=== PATIENT | female | born 1960 | race Native Hawaiian/Other Pacific Islander ===

== ENCOUNTER 2017-01-01 19:51 | Inpatient (IN) | payer BC ==
[~2017-01-01] VITALS: Ht 157.5 cm; Wt 81.2 kg
[2017-01-01] MEDS ORDERED: ATOR20TA PO (20:22)
[2017-01-01] MEDS ORDERED: LOSA25TA13 PO (20:22)
[2017-01-01] MEDS ORDERED: ALLO100T PO (20:22)
[2017-01-01] MEDS ORDERED: SODI650T PO (20:22)
[2017-01-01] MEDS ORDERED: CALC0.253 PO (20:22)
[2017-01-01] MEDS ORDERED: FERR-58 PO (20:22)
[2017-01-01] MEDS ORDERED: ALPR0.5T8 PO (20:22)
[2017-01-01] MEDS ORDERED: METO-304 PO (20:22)
[2017-01-01] MEDS ORDERED: ASPI81TA31 PO (20:22)
[2017-01-01] MEDS ORDERED: HYDR100T27 PO (20:22)
[2017-01-01 20:35] LABS: BASOPHILS # (AUTO) 0.1 K/uL (0.0-0.2); BASOPHILS % (AUTO) 0.5 % (0.0-2.0); EOSINOPHILS # (AUTO) 0.3 K/uL (0.0-0.7); EOSINOPHILS % (AUTO) 2.8 % (0.0-7.0); HEMATOCRIT 26.9 % (37.0-47.0); HEMOGLOBIN 8.7 g/dL (12.0-16.0); LYMPHOCYTES # (AUTO) 2.2 K/uL (0.8-4.8); LYMPHOCYTES % (AUTO) 19.2 % (20.5-51.5); MEAN CORPUSCULAR HEMOGLOBIN 28.3 uug (27.0-31.0); MEAN CORPUSCULAR HGB CONC 32 g/dL (32.0-37.0); MEAN CORPUSCULAR VOLUME 87.9 fL (81.0-99.0); MONOCYTES # (AUTO) 1.3 K/uL (0.1-1.30); MONOCYTES % (AUTO) 10.8 % (0.0-11.0); NEUTROPHILS # (AUTO) 7.7 K/uL (1.8-8.9); NEUTROPHILS % (AUTO) 66.7 % (38.5-71.5); PLATELET COUNT (AUTO) 324 K/uL (150-450); RED BLOOD CELL COUNT(AUTO) 3.07 MIL/uL (4.20-5.40); RED CELL DISTRIBUTION WIDTH 15.9 % (11.5-14.5); WHITE BLOOD COUNT (AUTO) 11.6 K/uL (4.0-11.2)
[2017-01-01 20:39] LABS: POTASSIUM 4.8 mmol/L (3.5-5.1)
[2017-01-01 20:41] LABS: CREATININE 9.4 mg/dL (0.6-1.3)
[2017-01-01 20:51] LABS: ALBUMIN 2.8 g/dL (3.4-5.0); BILIRUBIN,DIRECT 0.1 mg/dL (0.0-0.2); BILIRUBIN,TOTAL 0.2 mg/dL (0.2-1.0); TOTAL PROTEIN, SERUM 6.9 g/dL (6.4-8.2)
[2017-01-01 20:52] LABS: MAGNESIUM 1.6 mg/dL (1.8-2.4); PHOSPHOROUS 6.5 mg/dL (2.5-4.9)
[2017-01-01 20:57] LABS: ANISOCYTOSIS 1+
[2017-01-01 21:25] LABS: ABG BASE EXCESS -13.6 mmol/L; ABG HCO3 14.2 mmol/L; ABG PH 7.157 (7.350-7.450); ABG SITE LEFT RADIAL; ABG TOTAL HEMOGLOBIN 8.5 G/dL (12.0-16.0); COHb 1.2 % (0.5-1.5); O2Hb 50.8 % (94.0-97.0); VENT MODE Nasal Cannula
[2017-01-01 21:57] VITALS: BP 140/67
[2017-01-01] MEDS ORDERED: DEXTROSE 50% 50 ML DISP.SYRIN IV PRN (22:15)
[2017-01-01] MEDS: BLOOD SUGAR DIAGNOSTIC 1 EACH STRIP VI SCH (22:15)
[2017-01-02] VITALS (11 sets, daily range): BP systolic 125–165; BP diastolic 63–85
[2017-01-02 06:55] LABS: BASOPHILS # (AUTO) 0.1 K/uL (0.0-0.2); BASOPHILS % (AUTO) 0.5 % (0.0-2.0); EOSINOPHILS # (AUTO) 0.3 K/uL (0.0-0.7); EOSINOPHILS % (AUTO) 2.9 % (0.0-7.0); HEMATOCRIT 23.7 % (37.0-47.0); HEMOGLOBIN 7.6 g/dL (12.0-16.0); LYMPHOCYTES # (AUTO) 2.4 K/uL (0.8-4.8); LYMPHOCYTES % (AUTO) 23.7 % (20.5-51.5); MEAN CORPUSCULAR HEMOGLOBIN 28.2 uug (27.0-31.0); MEAN CORPUSCULAR HGB CONC 32 g/dL (32.0-37.0); MONOCYTES # (AUTO) 0.8 K/uL (0.1-1.30); MONOCYTES % (AUTO) 7.7 % (0.0-11.0); NEUTROPHILS # (AUTO) 6.4 K/uL (1.8-8.9); NEUTROPHILS % (AUTO) 65.2 % (38.5-71.5); PLATELET COUNT (AUTO) 275 K/uL (150-450); RED CELL DISTRIBUTION WIDTH 15.8 % (11.5-14.5)
[2017-01-02 06:57] LABS: CALCIUM 7.6 mg/dL (8.5-10.1); MAGNESIUM 1.6 mg/dL (1.8-2.4); PHOSPHOROUS 6.8 mg/dL (2.5-4.9); POTASSIUM 5.6 mmol/L (3.5-5.1)
[2017-01-02 07:00] LABS: CREATININE 9.4 mg/dL (0.6-1.3)
[2017-01-02] MEDS: BLOOD SUGAR DIAGNOSTIC 1 EACH STRIP VI SCH ×4 (07:24→20:42)
[2017-01-02] MEDS ORDERED: METOLAZONE 5 MG TABLET PO ONE (07:45)
[2017-01-02] MEDS ORDERED: EPOETIN ALFA 20,000 UNIT/ML ML SQ ONE (08:15)
[2017-01-02] MEDS ORDERED: MAGNESIUM SULFATE/D5W 100 ML IV SCH (08:15)
[2017-01-02] MEDS: SEVELAMER CARBONATE 800 MG TABLET PO SCH ×3 (08:21→18:18)
[2017-01-02] MEDS: SODIUM BICARBONATE 8.4% 50 MEQ in IV 1/2NS 1000 ML 1,000 ML IV PRN ×2 (09:54→10:22)
[2017-01-02] MEDS: FERROUS SULFATE 325 MG TABEC PO SCH ×3 (09:56→16:23)
[2017-01-02] MEDS: ALLOPURINOL 100 MG TABLET PO SCH (09:56)
[2017-01-02] MEDS: ASPIRIN 81 MG TAB.CHEW PO SCH (09:56)
[2017-01-02] MEDS: hydrALAZINE HCL 50 MG TABLET PO SCH ×3 (09:57→22:47)
[2017-01-02] MEDS: SODIUM BICARBONATE 650 MG TABLET PO SCH ×3 (09:58→16:23)
[2017-01-02] MEDS: ALPRAZOLAM 0.5 MG TABLET PO PRN ×2 (14:29→22:54)
[2017-01-02] MEDS: METOPROLOL SUCCINATE XL 50 MG TAB.SR.24H PO SCH (20:44)
[2017-01-02] MEDS: CALCITRIOL 0.25 MCG CAPSULE PO SCH (20:44)
[2017-01-02] MEDS: ATORVASTATIN 20 MG TABLET PO SCH (20:44)
[2017-01-02] MEDS: INSULIN REGULAR, HUMAN 300 UNIT/3 ML VIAL SQ PRN (20:53)
[2017-01-03] VITALS: BP 149/71
[2017-01-03 04:00] VITALS: BP 143/73
[2017-01-03] MEDS: PANTOPRAZOLE SODIUM 40 MG TABLET.DR PO SCH (06:08)
[2017-01-03] MEDS: hydrALAZINE HCL 50 MG TABLET PO SCH ×3 (06:08→22:24)
[2017-01-03] MEDS: BLOOD SUGAR DIAGNOSTIC 1 EACH STRIP VI SCH ×4 (06:08→21:42)
[2017-01-03 06:50] LABS: ALBUMIN 2.7 g/dL (3.4-5.0); BILIRUBIN,TOTAL 0.3 mg/dL (0.2-1.0); CALCIUM 8.1 mg/dL (8.5-10.1); MAGNESIUM 1.8 mg/dL (1.8-2.4); PHOSPHOROUS 6.1 mg/dL (2.5-4.9); TOTAL PROTEIN, SERUM 6.7 g/dL (6.4-8.2)
[2017-01-03 06:51] LABS: CREATININE 8.8 mg/dL (0.6-1.3)
[2017-01-03 07:39] LABS: WHITE BLOOD COUNT (AUTO) 10.9 K/UL (4.3-11.0)
[2017-01-03 07:40] LABS: HEMATOCRIT 29.1 % (33-45); HEMOGLOBIN 9.7 G/DL (11.5-14.8); LYMPHOCYTES % (AUTO) 15.1 % (20.5-51.5); MEAN CORPUSCULAR HEMOGLOBIN 29.7 UUG (26.0-33.0); MEAN CORPUSCULAR HGB CONC 33 g/dL (31.0-36.0); MEAN CORPUSCULAR VOLUME 89.4 FL (82-100); MONOCYTES % (AUTO) 7.9 % (0.0-11.0); PLATELET COUNT (AUTO) 278 K/UL (150-450); RED BLOOD CELL COUNT(AUTO) 3.25 MIL/UL (4.0-5.2); RED CELL DISTRIBUTION WIDTH 15.9 % (11.5-15.0)
[2017-01-03 07:41] LABS: BASOPHILS # (AUTO) 0.1 K/UL (0.0-0.2); BASOPHILS % (AUTO) 0.7 % (0.0-2.0); EOSINOPHILS # (AUTO) 0.2 K/UL (0.0-0.7); EOSINOPHILS % (AUTO) 2.3 % (0.0-7.0); LYMPHOCYTES # (AUTO) 1.6 K/UL (0.8-4.8); MONOCYTES # (AUTO) 0.9 K/UL (0.1-1.30)
[2017-01-03] MEDS: SEVELAMER CARBONATE 800 MG TABLET PO SCH ×3 (09:03→17:39)
[2017-01-03] MEDS: ASPIRIN 81 MG TAB.CHEW PO SCH (09:03)
[2017-01-03] MEDS: ALLOPURINOL 100 MG TABLET PO SCH (09:04)
[2017-01-03] MEDS: FERROUS SULFATE 325 MG TABEC PO SCH ×3 (09:04→17:39)
[2017-01-03] MEDS: SODIUM BICARBONATE 650 MG TABLET PO SCH ×3 (10:43→17:39)
[2017-01-03 11:58] VITALS: BP 150/76
[2017-01-03] MEDS: ALPRAZOLAM 0.5 MG TABLET PO PRN (12:23)
[2017-01-03] MEDS ORDERED: MORPHINE SULFATE 2 MG/1 ML DISP.SYRIN IV PRN (13:30)
[2017-01-03] MEDS: SODIUM BICARBONATE 8.4% 50 MEQ in IV 1/2NS 1000 ML 1,000 ML IV PRN (13:39)
[2017-01-03] MEDS: HYDROCODONE/APAP 5-325MG TABLET PO PRN (14:24)
[2017-01-03 16:43] VITALS: BP 144/70
[2017-01-03] MEDS: INSULIN REGULAR, HUMAN 300 UNIT/3 ML VIAL SQ PRN (17:46)
[2017-01-03] MEDS ORDERED: ONDANSETRON 4 MG/2 ML VIAL ONE (21:44)
[2017-01-03] MEDS: ONDANSETRON 4 MG/2 ML VIAL IV PRN (21:49)
[2017-01-03] MEDS: METOPROLOL SUCCINATE XL 50 MG TAB.SR.24H PO SCH (21:52)
[2017-01-03] MEDS: CALCITRIOL 0.25 MCG CAPSULE PO SCH (22:17)
[2017-01-03] MEDS: ATORVASTATIN 20 MG TABLET PO SCH (22:18)
[2017-01-04] MEDS: ACETAMINOPHEN 325 MG TABLET PO PRN ×3 (02:33→22:02)
[2017-01-04] MEDS: PANTOPRAZOLE SODIUM 40 MG TABLET.DR PO SCH (06:01)
[2017-01-04 06:03] LABS: ALBUMIN 2.3 g/dL (3.4-5.0); BILIRUBIN,TOTAL 0.2 mg/dL (0.2-1.0); CALCIUM 7.7 mg/dL (8.5-10.1); MAGNESIUM 1.6 mg/dL (1.8-2.4); PHOSPHOROUS 5.1 mg/dL (2.5-4.9); POTASSIUM 4.7 mmol/L (3.5-5.1); TOTAL PROTEIN, SERUM 6.1 g/dL (6.4-8.2)
[2017-01-04 06:04] LABS: CREATININE 5.8 mg/dL (0.6-1.3)
[2017-01-04] MEDS: hydrALAZINE HCL 50 MG TABLET PO SCH ×3 (06:04→21:21)
[2017-01-04] MEDS: BLOOD SUGAR DIAGNOSTIC 1 EACH STRIP VI SCH ×4 (06:10→21:26)
[2017-01-04] MEDS: INSULIN REGULAR, HUMAN 300 UNIT/3 ML VIAL SQ PRN ×4 (06:11→21:27)
[2017-01-04 07:10] LABS: WHITE BLOOD COUNT (AUTO) 13.1 K/uL (4.0-11.2)
[2017-01-04 07:11] LABS: HEMATOCRIT 28.3 % (37.0-47.0); HEMOGLOBIN 9.2 g/dL (12.0-16.0); MEAN CORPUSCULAR HEMOGLOBIN 28.9 uug (27.0-31.0); MEAN CORPUSCULAR HGB CONC 33 g/dL (32.0-37.0); MEAN CORPUSCULAR VOLUME 88.6 fL (81.0-99.0); PLATELET COUNT (AUTO) 271 K/uL (150-450)
[2017-01-04 07:12] LABS: BASOPHILS % (AUTO) 0.4 % (0.0-2.0); EOSINOPHILS # (AUTO) 0.1 K/uL (0.0-0.7); EOSINOPHILS % (AUTO) 0.8 % (0.0-7.0); LYMPHOCYTES # (AUTO) 1.6 K/uL (0.8-4.8); LYMPHOCYTES % (AUTO) 11.9 % (20.5-51.5); NEUTROPHILS # (AUTO) 10.3 K/uL (1.8-8.9); NEUTROPHILS % (AUTO) 78.9 % (38.5-71.5)
[2017-01-04] MEDS: ASPIRIN 81 MG TAB.CHEW PO SCH (08:16)
[2017-01-04] MEDS: SEVELAMER CARBONATE 800 MG TABLET PO SCH ×3 (08:16→17:23)
[2017-01-04] MEDS: FERROUS SULFATE 325 MG TABEC PO SCH ×3 (08:16→17:23)
[2017-01-04] MEDS: ALLOPURINOL 100 MG TABLET PO SCH (08:16)
[2017-01-04] MEDS: SODIUM BICARBONATE 650 MG TABLET PO SCH ×3 (08:16→17:23)
[2017-01-04] MEDS: SODIUM BICARBONATE 8.4% 50 MEQ in IV 1/2NS 1000 ML 1,000 ML IV PRN (10:27)
[2017-01-04 12:00] VITALS: BP 158/82
[2017-01-04 16:00] VITALS: BP 140/79
[2017-01-04] MEDS ORDERED: MAGNESIUM SULFATE/D5W 100 ML IV SCH (18:30)
[2017-01-04] MEDS: ONDANSETRON 4 MG/2 ML VIAL IV PRN (19:48)
[2017-01-04 20:00] VITALS: BP 182/89
[2017-01-04] MEDS: METOPROLOL SUCCINATE XL 50 MG TAB.SR.24H PO SCH (21:20)
[2017-01-04] MEDS: CALCITRIOL 0.25 MCG CAPSULE PO SCH (21:20)
[2017-01-04] MEDS: ATORVASTATIN 20 MG TABLET PO SCH (21:20)
[2017-01-05] VITALS: BP 117/59
[2017-01-05] MEDS: SODIUM BICARBONATE 8.4% 50 MEQ in IV 1/2NS 1000 ML 1,000 ML IV PRN ×2 (02:34→22:02)
[2017-01-05 04:00] VITALS: BP 145/72
[2017-01-05] MEDS: hydrALAZINE HCL 50 MG TABLET PO SCH ×4 (05:12→22:58)
[2017-01-05] MEDS: PANTOPRAZOLE SODIUM 40 MG TABLET.DR PO SCH (06:19)
[2017-01-05] MEDS: ALPRAZOLAM 0.5 MG TABLET PO PRN ×2 (06:23→12:35)
[2017-01-05 07:09] LABS: BASOPHILS # (AUTO) 0.1 K/uL (0.0-0.2); BASOPHILS % (AUTO) 0.4 % (0.0-2.0); EOSINOPHILS # (AUTO) 0.2 K/uL (0.0-0.7); EOSINOPHILS % (AUTO) 1.1 % (0.0-7.0); HEMATOCRIT 29.9 % (37.0-47.0); HEMOGLOBIN 9.6 g/dL (12.0-16.0); LYMPHOCYTES # (AUTO) 1.8 K/uL (0.8-4.8); LYMPHOCYTES % (AUTO) 11.1 % (20.5-51.5); MEAN CORPUSCULAR HEMOGLOBIN 28.8 uug (27.0-31.0); MEAN CORPUSCULAR HGB CONC 32 g/dL (32.0-37.0); MEAN CORPUSCULAR VOLUME 89.4 fL (81.0-99.0); MONOCYTES # (AUTO) 1.1 K/uL (0.1-1.30); MONOCYTES % (AUTO) 6.8 % (0.0-11.0); NEUTROPHILS % (AUTO) 80.6 % (38.5-71.5); PLATELET COUNT (AUTO) 276 K/uL (150-450); RED BLOOD CELL COUNT(AUTO) 3.34 MIL/uL (4.20-5.40); RED CELL DISTRIBUTION WIDTH 15.3 % (11.5-14.5); WHITE BLOOD COUNT (AUTO) 16.2 K/uL (4.0-11.2)
[2017-01-05 07:12] LABS: CALCIUM 7.7 mg/dL (8.5-10.1); POTASSIUM 4.3 mmol/L (3.5-5.1)
[2017-01-05 07:17] LABS: CREATININE 4.5 mg/dL (0.6-1.3)
[2017-01-05] MEDS: BLOOD SUGAR DIAGNOSTIC 1 EACH STRIP VI SCH ×4 (07:32→21:03)
[2017-01-05] MEDS: SEVELAMER CARBONATE 800 MG TABLET PO SCH ×3 (08:35→16:47)
[2017-01-05] MEDS: ALLOPURINOL 100 MG TABLET PO SCH (08:35)
[2017-01-05] MEDS: FERROUS SULFATE 325 MG TABEC PO SCH ×3 (08:35→16:47)
[2017-01-05] MEDS: ASPIRIN 81 MG TAB.CHEW PO SCH (08:36)
[2017-01-05] MEDS: SODIUM BICARBONATE 650 MG TABLET PO SCH (08:36)
[2017-01-05] MEDS: INSULIN REGULAR, HUMAN 300 UNIT/3 ML VIAL SQ PRN ×2 (08:38→22:09)
[2017-01-05] MEDS ORDERED: LEVOFLOXACIN 500 MG/D5W 500 MG in PREMIXED 1 EACH IV SCH (10:30)
[2017-01-05] MEDS ORDERED: VANCOMYCIN IV 500 MG in IV DEXTROSE 5% 100 ML IV SCH (10:30)
[2017-01-05] MEDS ORDERED: LEVOFLOXACIN 500 MG/D5W 500 MG in PREMIXED 1 EACH IV ONE (11:00)
[2017-01-05] MEDS ORDERED: IV NORMAL SALINE 250 ML IV ONE (11:04)
[2017-01-05] MEDS ORDERED: IOHEXOL 350 100 ML INFUS..BTL ONE (11:04)
[2017-01-05 11:55] VITALS: BP 148/77
[2017-01-05] MEDS ORDERED: VANCOMYCIN IV 500 MG in IV DEXTROSE 5% 100 ML IV PRN (12:30)
[2017-01-05 16:00] VITALS: BP 141/73
[2017-01-05] MEDS ORDERED: PIPERACILLIN/TAZO 0.75 G in IV DEXTROSE 5% 50 ML IV PRN (16:45)
[2017-01-05] MEDS: PIPERACILLIN/TAZOBACTAM/D5W 2.25 G in PREMIXED 1 EACH IV SCH ×2 (16:47→22:02)
[2017-01-05] MEDS: ACETAMINOPHEN 325 MG TABLET PO PRN (16:55)
[2017-01-05 20:00] VITALS: BP 139/81
[2017-01-05] MEDS: ATORVASTATIN 20 MG TABLET PO SCH (20:14)
[2017-01-05] MEDS: CALCITRIOL 0.25 MCG CAPSULE PO SCH (20:14)
[2017-01-05] MEDS: METOPROLOL SUCCINATE XL 50 MG TAB.SR.24H PO SCH (20:15)
[2017-01-05] MEDS: SIMETHICONE 80 MG TAB.CHEW PO PRN (21:02)
[2017-01-05] MEDS: SENNOSIDES 1 TABLET PO SCH (22:57)
[2017-01-05] MEDS ORDERED: SENNOSIDES 1 TABLET ONE (23:02)
[2017-01-06 02:10] LABS: HCV AB <0.1 s/co ratio (0.0-0.9); HEPATITIS A AB, IgM Negative (Negative); HEPATITIS A AB, TOTAL Positive (Negative); HEPATITIS B CORE AB, IgM Negative (Negative); HEPATITIS B CORE AB, TOTAL Negative (Negative); HEPATITIS B SURFACE AB Non Reactive (.); HEPATITIS B SURFACE AG Negative (Negative); HEPATITIS Be ANTIGEN Negative (Negative)
[2017-01-06 04:30] VITALS: BP 130/67
[2017-01-06] MEDS: hydrALAZINE HCL 50 MG TABLET PO SCH ×3 (06:00→22:28)
[2017-01-06] MEDS: PIPERACILLIN/TAZOBACTAM/D5W 2.25 G in PREMIXED 1 EACH IV SCH ×3 (06:07→21:03)
[2017-01-06] MEDS: PANTOPRAZOLE SODIUM 40 MG TABLET.DR PO SCH (06:07)
[2017-01-06 06:14] VITALS: BP 133/69
[2017-01-06] MEDS: BLOOD SUGAR DIAGNOSTIC 1 EACH STRIP VI SCH ×4 (06:50→22:26)
[2017-01-06] MEDS: ASPIRIN 81 MG TAB.CHEW PO SCH (08:29)
[2017-01-06] MEDS: SEVELAMER CARBONATE 800 MG TABLET PO SCH ×3 (08:29→17:07)
[2017-01-06] MEDS: DOCUSATE SODIUM 100 MG CAPSULE PO SCH ×2 (08:29→21:00)
[2017-01-06] MEDS: FERROUS SULFATE 325 MG TABEC PO SCH ×3 (08:30→17:07)
[2017-01-06] MEDS: ALLOPURINOL 100 MG TABLET PO SCH (08:30)
[2017-01-06] MEDS: SIMETHICONE 80 MG TAB.CHEW PO PRN ×3 (08:32→21:03)
[2017-01-06] MEDS ORDERED: LEVOFLOXACIN 250MG /D5W 250 MG in PREMIXED 1 EACH IV SCH (09:00)
[2017-01-06 09:14] LABS: CALCIUM 7.7 mg/dL (8.5-10.1); POTASSIUM 4.8 mmol/L (3.5-5.1)
[2017-01-06 09:15] LABS: CREATININE 5.8 mg/dL (0.6-1.3)
[2017-01-06 09:26] LABS: BASOPHILS # (AUTO) 0.1 K/uL (0.0-0.2); BASOPHILS % (AUTO) 0.6 % (0.0-2.0); EOSINOPHILS # (AUTO) 0.5 K/uL (0.0-0.7); EOSINOPHILS % (AUTO) 3.2 % (0.0-7.0); HEMATOCRIT 29.4 % (37.0-47.0); HEMOGLOBIN 9.3 g/dL (12.0-16.0); LYMPHOCYTES # (AUTO) 1.6 K/uL (0.8-4.8); LYMPHOCYTES % (AUTO) 9.9 % (20.5-51.5); MEAN CORPUSCULAR HEMOGLOBIN 27.9 uug (27.0-31.0); MEAN CORPUSCULAR HGB CONC 31 g/dL (32.0-37.0); MEAN CORPUSCULAR VOLUME 88.8 fL (81.0-99.0); MONOCYTES # (AUTO) 1.2 K/uL (0.1-1.30); MONOCYTES % (AUTO) 7.4 % (0.0-11.0); NEUTROPHILS # (AUTO) 12.7 K/uL (1.8-8.9); NEUTROPHILS % (AUTO) 78.9 % (38.5-71.5); PLATELET COUNT (AUTO) 264 K/uL (150-450); RED BLOOD CELL COUNT(AUTO) 3.31 MIL/uL (4.20-5.40); WHITE BLOOD COUNT (AUTO) 16.1 K/uL (4.0-11.2)
[2017-01-06 11:58] VITALS: BP 146/75
[2017-01-06] MEDS: INSULIN REGULAR, HUMAN 300 UNIT/3 ML VIAL SQ PRN ×2 (12:51→21:24)
[2017-01-06 15:26] VITALS: BP 162/80
[2017-01-06] MEDS: ONDANSETRON 4 MG/2 ML VIAL IV PRN (18:43)
[2017-01-06 19:00] VITALS: BP 153/73
[2017-01-06] MEDS: SENNOSIDES 1 TABLET PO SCH (21:00)
[2017-01-06] MEDS: LACTOBACILLUS RHAMNOSUS GG 1 EACH CAPSULE PO SCH (21:00)
[2017-01-06] MEDS: ATORVASTATIN 20 MG TABLET PO SCH (21:00)
[2017-01-06] MEDS: METOPROLOL SUCCINATE XL 50 MG TAB.SR.24H PO SCH (21:00)
[2017-01-06] MEDS: CALCITRIOL 0.25 MCG CAPSULE PO SCH (21:01)
[2017-01-06] MEDS ORDERED: VANCOMYCIN IV 1 G in PREMIXED 0 EACH IV ONE (22:00)
[2017-01-06] MEDS: ACETAMINOPHEN 325 MG TABLET PO PRN (23:17)
[2017-01-07] MEDS: SIMETHICONE 80 MG TAB.CHEW PO PRN ×3 (03:34→21:00)
[2017-01-07 04:00] VITALS: BP 109/50
[2017-01-07] MEDS: PIPERACILLIN/TAZOBACTAM/D5W 2.25 G in PREMIXED 1 EACH IV SCH ×3 (05:49→22:09)
[2017-01-07] MEDS: hydrALAZINE HCL 50 MG TABLET PO SCH ×3 (05:50→22:10)
[2017-01-07 06:32] LABS: BASOPHILS % (AUTO) 0.2 % (0.0-2.0); EOSINOPHILS # (AUTO) 0.4 K/uL (0.0-0.7); HEMATOCRIT 26.2 % (37.0-47.0); HEMOGLOBIN 8.5 g/dL (12.0-16.0); LYMPHOCYTES # (AUTO) 1.7 K/uL (0.8-4.8); LYMPHOCYTES % (AUTO) 11.7 % (20.5-51.5); MEAN CORPUSCULAR HEMOGLOBIN 28.9 uug (27.0-31.0); MEAN CORPUSCULAR HGB CONC 32 g/dL (32.0-37.0); MEAN CORPUSCULAR VOLUME 89.5 fL (81.0-99.0); MONOCYTES # (AUTO) 1.2 K/uL (0.1-1.30); MONOCYTES % (AUTO) 8.2 % (0.0-11.0); NEUTROPHILS # (AUTO) 11.5 K/uL (1.8-8.9); NEUTROPHILS % (AUTO) 76.9 % (38.5-71.5); PLATELET COUNT (AUTO) 207 K/uL (150-450); RED BLOOD CELL COUNT(AUTO) 2.92 MIL/uL (4.20-5.40); WHITE BLOOD COUNT (AUTO) 14.8 K/uL (4.0-11.2)
[2017-01-07] MEDS: ALPRAZOLAM 0.5 MG TABLET PO PRN (07:04)
[2017-01-07] MEDS: BLOOD SUGAR DIAGNOSTIC 1 EACH STRIP VI SCH ×4 (07:04→21:00)
[2017-01-07 07:18] LABS: ALBUMIN 2.2 g/dL (3.4-5.0); BILIRUBIN,TOTAL 0.2 mg/dL (0.2-1.0); CALCIUM 7.8 mg/dL (8.5-10.1); MAGNESIUM 1.6 mg/dL (1.8-2.4); PHOSPHOROUS 3.5 mg/dL (2.5-4.9); POTASSIUM 4.5 mmol/L (3.5-5.1); TOTAL PROTEIN, SERUM 5.8 g/dL (6.4-8.2)
[2017-01-07 07:19] LABS: CREATININE 4.6 mg/dL (0.6-1.3)
[2017-01-07] MEDS: PANTOPRAZOLE SODIUM 40 MG TABLET.DR PO SCH (07:24)
[2017-01-07] MEDS: ONDANSETRON 4 MG/2 ML VIAL IV PRN (07:33)
[2017-01-07] MEDS: MAG HYDROX/AL HYDROX/SIMETH 30 ML LIQUID UDC PO PRN ×3 (08:05→23:07)
[2017-01-07] MEDS: FERROUS SULFATE 325 MG TABEC PO SCH ×3 (08:06→16:29)
[2017-01-07] MEDS: LACTOBACILLUS RHAMNOSUS GG 1 EACH CAPSULE PO SCH ×2 (08:06→20:59)
[2017-01-07] MEDS: ASPIRIN 81 MG TAB.CHEW PO SCH (08:06)
[2017-01-07] MEDS: SEVELAMER CARBONATE 800 MG TABLET PO SCH ×3 (08:06→16:29)
[2017-01-07] MEDS: DOCUSATE SODIUM 100 MG CAPSULE PO SCH ×2 (08:06→20:59)
[2017-01-07 11:38] VITALS: BP 118/57
[2017-01-07] MEDS: ALLOPURINOL 100 MG TABLET PO SCH (12:49)
[2017-01-07 15:15] VITALS: BP 155/88
[2017-01-07 20:00] VITALS: BP 172/88
[2017-01-07] MEDS: ATORVASTATIN 20 MG TABLET PO SCH (20:59)
[2017-01-07] MEDS: CALCITRIOL 0.25 MCG CAPSULE PO SCH (20:59)
[2017-01-07] MEDS: SENNOSIDES 1 TABLET PO SCH (20:59)
[2017-01-07] MEDS: METOPROLOL SUCCINATE XL 50 MG TAB.SR.24H PO SCH (21:00)
[2017-01-07 23:30] VITALS: BP 172/62
[2017-01-08] MEDS ORDERED: CLONIDINE HCL 0.1 MG TABLET PO PRN
[2017-01-08 02:30] VITALS: BP 149/75
[2017-01-08] MEDS: ACETAMINOPHEN 325 MG TABLET PO PRN (02:34)
[2017-01-08] MEDS: PIPERACILLIN/TAZOBACTAM/D5W 2.25 G in PREMIXED 1 EACH IV SCH ×3 (05:49→22:40)
[2017-01-08] MEDS: hydrALAZINE HCL 50 MG TABLET PO SCH ×3 (05:50→22:53)
[2017-01-08] MEDS: MAG HYDROX/AL HYDROX/SIMETH 30 ML LIQUID UDC PO PRN ×3 (05:51→21:20)
[2017-01-08 06:00] VITALS: BP 144/76
[2017-01-08] MEDS: PANTOPRAZOLE SODIUM 40 MG TABLET.DR PO SCH (06:19)
[2017-01-08] MEDS: BLOOD SUGAR DIAGNOSTIC 1 EACH STRIP VI SCH ×4 (06:20→22:56)
[2017-01-08 06:36] LABS: BASOPHILS # (AUTO) 0.1 K/uL (0.0-0.2); BASOPHILS % (AUTO) 0.5 % (0.0-2.0); EOSINOPHILS # (AUTO) 0.6 K/uL (0.0-0.7); EOSINOPHILS % (AUTO) 4.2 % (0.0-7.0); HEMOGLOBIN 8.7 g/dL (12.0-16.0); LYMPHOCYTES # (AUTO) 1.5 K/uL (0.8-4.8); LYMPHOCYTES % (AUTO) 10.8 % (20.5-51.5); MEAN CORPUSCULAR HGB CONC 32 g/dL (32.0-37.0); MEAN CORPUSCULAR VOLUME 89.7 fL (81.0-99.0); MONOCYTES # (AUTO) 1.3 K/uL (0.1-1.30); MONOCYTES % (AUTO) 9.5 % (0.0-11.0); NEUTROPHILS # (AUTO) 10.5 K/uL (1.8-8.9); PLATELET COUNT (AUTO) 201 K/uL (150-450); RED BLOOD CELL COUNT(AUTO) 3.01 MIL/uL (4.20-5.40); RED CELL DISTRIBUTION WIDTH 15.2 % (11.5-14.5)
[2017-01-08 06:43] LABS: ALBUMIN 2.3 g/dL (3.4-5.0); BILIRUBIN,TOTAL 0.3 mg/dL (0.2-1.0); CALCIUM 7.8 mg/dL (8.5-10.1); CREATININE 5.9 mg/dL (0.6-1.3); MAGNESIUM 1.6 mg/dL (1.8-2.4); PHOSPHOROUS 3.4 mg/dL (2.5-4.9); POTASSIUM 4.7 mmol/L (3.5-5.1); TOTAL PROTEIN, SERUM 6.1 g/dL (6.4-8.2)
[2017-01-08 08:20] LABS: ABG BASE EXCESS -0.4 mmol/L; ABG HCO3 25.4 mmol/L; ABG PCO2 46.5 mmHg (35.0-45.0); ABG PH 7.355 (7.350-7.450); ABG PO2 86.3 mmHg (75.0-100.0); ABG SITE RIGHT RADIAL; ABG TOTAL HEMOGLOBIN 10.4 G/dL (12.0-16.0); COHb 1.2 % (0.5-1.5); MetHb 0.1 % (0.0-1.5); O2Hb 95.3 % (94.0-97.0); VENT MODE Nasal Cannula
[2017-01-08] MEDS: ONDANSETRON 4 MG/2 ML VIAL IV PRN (08:40)
[2017-01-08] MEDS: ALPRAZOLAM 0.5 MG TABLET PO PRN ×2 (08:44→21:20)
[2017-01-08] MEDS: SEVELAMER CARBONATE 800 MG TABLET PO SCH ×3 (08:44→17:41)
[2017-01-08] MEDS: ALLOPURINOL 100 MG TABLET PO SCH (11:15)
[2017-01-08] MEDS: FERROUS SULFATE 325 MG TABEC PO SCH ×3 (11:15→17:41)
[2017-01-08] MEDS: DOCUSATE SODIUM 100 MG CAPSULE PO SCH ×2 (11:15→21:14)
[2017-01-08] MEDS: LACTOBACILLUS RHAMNOSUS GG 1 EACH CAPSULE PO SCH ×2 (11:16→21:14)
[2017-01-08] MEDS: ASPIRIN 81 MG TAB.CHEW PO SCH (11:16)
[2017-01-08] MEDS: SIMETHICONE 80 MG TAB.CHEW PO PRN ×2 (11:37→21:20)
[2017-01-08 11:48] VITALS: BP 106/59
[2017-01-08 15:13] VITALS: BP 112/64
[2017-01-08] MEDS ORDERED: VANCOMYCIN IV 1 G in PREMIXED 0 EACH IV ONE (17:40)
[2017-01-08 19:00] VITALS: BP 171/79
[2017-01-08] MEDS: LEVOFLOXACIN 250MG /D5W 250 MG in PREMIXED 1 EACH IV SCH (21:12)
[2017-01-08] MEDS: SENNOSIDES 1 TABLET PO SCH (21:13)
[2017-01-08] MEDS: CALCITRIOL 0.25 MCG CAPSULE PO SCH (21:13)
[2017-01-08] MEDS: ATORVASTATIN 20 MG TABLET PO SCH (21:14)
[2017-01-08] MEDS: METOPROLOL SUCCINATE XL 50 MG TAB.SR.24H PO SCH (21:14)
[2017-01-08] MEDS: INSULIN REGULAR, HUMAN 300 UNIT/3 ML VIAL SQ PRN (23:03)
[2017-01-09] MEDS ORDERED: LORAZEPAM 1 MG TABLET PO ONE (01:45)
[2017-01-09] MEDS ORDERED: LORAZEPAM 1 MG TABLET ONE (01:46)
[2017-01-09 04:00] VITALS: BP 135/61
[2017-01-09] MEDS: PIPERACILLIN/TAZOBACTAM/D5W 2.25 G in PREMIXED 1 EACH IV SCH ×3 (05:54→22:03)
[2017-01-09 06:38] LABS: BASOPHILS % (AUTO) 0.4 % (0.0-2.0); EOSINOPHILS # (AUTO) 0.6 K/uL (0.0-0.7); EOSINOPHILS % (AUTO) 5.2 % (0.0-7.0); HEMATOCRIT 27.6 % (37.0-47.0); HEMOGLOBIN 8.7 g/dL (12.0-16.0); LYMPHOCYTES # (AUTO) 1.6 K/uL (0.8-4.8); LYMPHOCYTES % (AUTO) 14.6 % (20.5-51.5); MEAN CORPUSCULAR HEMOGLOBIN 28.7 uug (27.0-31.0); MEAN CORPUSCULAR HGB CONC 32 g/dL (32.0-37.0); MEAN CORPUSCULAR VOLUME 90.8 fL (81.0-99.0); MONOCYTES # (AUTO) 1.3 K/uL (0.1-1.30); MONOCYTES % (AUTO) 11.7 % (0.0-11.0); NEUTROPHILS # (AUTO) 7.6 K/uL (1.8-8.9); NEUTROPHILS % (AUTO) 68.1 % (38.5-71.5); PLATELET COUNT (AUTO) 202 K/uL (150-450); RED BLOOD CELL COUNT(AUTO) 3.04 MIL/uL (4.20-5.40); RED CELL DISTRIBUTION WIDTH 15.6 % (11.5-14.5); WHITE BLOOD COUNT (AUTO) 11.1 K/uL (4.0-11.2)
[2017-01-09] MEDS: hydrALAZINE HCL 50 MG TABLET PO SCH ×3 (06:56→22:04)
[2017-01-09] MEDS: PANTOPRAZOLE SODIUM 40 MG TABLET.DR PO SCH (06:56)
[2017-01-09] MEDS: BLOOD SUGAR DIAGNOSTIC 1 EACH STRIP VI SCH ×4 (06:59→20:56)
[2017-01-09 07:26] LABS: ALBUMIN 2.4 g/dL (3.4-5.0); BILIRUBIN,TOTAL 0.3 mg/dL (0.2-1.0); PHOSPHOROUS 3.6 mg/dL (2.5-4.9); POTASSIUM 5.1 mmol/L (3.5-5.1); TOTAL PROTEIN, SERUM 6.3 g/dL (6.4-8.2)
[2017-01-09] MEDS: DOCUSATE SODIUM 100 MG CAPSULE PO SCH ×2 (08:21→20:55)
[2017-01-09] MEDS: SEVELAMER CARBONATE 800 MG TABLET PO SCH ×3 (08:21→17:09)
[2017-01-09] MEDS: LACTOBACILLUS RHAMNOSUS GG 1 EACH CAPSULE PO SCH ×2 (08:21→20:55)
[2017-01-09] MEDS: ASPIRIN 81 MG TAB.CHEW PO SCH (08:21)
[2017-01-09] MEDS: FERROUS SULFATE 325 MG TABEC PO SCH ×3 (08:21→17:00)
[2017-01-09] MEDS: ALLOPURINOL 100 MG TABLET PO SCH (08:21)
[2017-01-09] MEDS: SIMETHICONE 80 MG TAB.CHEW PO PRN ×2 (09:18→21:06)
[2017-01-09 12:20] VITALS: BP 154/71
[2017-01-09] MEDS ORDERED: HEPARIN SODIUM,PORCINE 10,000 UNITS/10 ML VIAL ONE (16:18)
[2017-01-09] MEDS ORDERED: BUPIVACAINE 0.25% 30 ML VIAL ONE (16:19)
[2017-01-09] MEDS ORDERED: HEPARIN/NS 500 ML ONE (16:19)
[2017-01-09] MEDS ORDERED: LIDOCAINE HCL 1% 20 ML VIAL ONE (16:19)
[2017-01-09 16:37] VITALS: BP 150/74
[2017-01-09] MEDS ORDERED: POLYMYXIN B SULFATE 500,000 UNITS, BACITRACIN 50,000 UNITS, NORMAL SALINE 20 ML MC ONE ×3 (16:45)
[2017-01-09] MEDS ORDERED: LIDOCAINE HCL 1% 20 ML VIAL MC ONE (18:12)
[2017-01-09] MEDS ORDERED: PROPOFOL 200 MG/20 ML BOTTLE IV ONE (18:12)
[2017-01-09] MEDS ORDERED: IV NORMAL SALINE 1000 ML BAG IV ONE (18:12)
[2017-01-09] MEDS ORDERED: CEFAZOLIN 1 G VIAL MC ONE (18:12)
[2017-01-09] MEDS ORDERED: LABETALOL HCL 100 MG/20 ML VIAL ONE (19:14)
[2017-01-09 20:40] VITALS: BP 148/75
[2017-01-09] MEDS: CALCITRIOL 0.25 MCG CAPSULE PO SCH (20:55)
[2017-01-09] MEDS: ATORVASTATIN 20 MG TABLET PO SCH (20:55)
[2017-01-09] MEDS: METOPROLOL SUCCINATE XL 50 MG TAB.SR.24H PO SCH (20:56)
[2017-01-09] MEDS: SENNOSIDES 1 TABLET PO SCH (20:56)
[2017-01-09] MEDS: MAG HYDROX/AL HYDROX/SIMETH 30 ML LIQUID UDC PO PRN (20:57)
[2017-01-09] MEDS: INSULIN REGULAR, HUMAN 300 UNIT/3 ML VIAL SQ PRN (20:57)
[2017-01-09] MEDS ORDERED: LACTOBACILLUS RHAMNOSUS GG 1 EACH CAPSULE PO SCH (21:00)
[2017-01-09] MEDS: MORPHINE SULFATE 2 MG/1 ML DISP.SYRIN IV PRN (22:04)
[2017-01-10] MEDS: MORPHINE SULFATE 2 MG/1 ML DISP.SYRIN IV PRN ×2 (04:48→11:13)
[2017-01-10 04:59] VITALS: BP 145/70
[2017-01-10] MEDS: PIPERACILLIN/TAZOBACTAM/D5W 2.25 G in PREMIXED 1 EACH IV SCH ×3 (05:00→21:51)
[2017-01-10] MEDS: hydrALAZINE HCL 50 MG TABLET PO SCH ×3 (05:00→21:52)
[2017-01-10] MEDS: PANTOPRAZOLE SODIUM 40 MG TABLET.DR PO SCH (06:40)
[2017-01-10] MEDS: BLOOD SUGAR DIAGNOSTIC 1 EACH STRIP VI SCH ×4 (06:41→20:51)
[2017-01-10] MEDS: INSULIN REGULAR, HUMAN 300 UNIT/3 ML VIAL SQ PRN ×3 (08:18→23:16)
[2017-01-10] MEDS: SEVELAMER CARBONATE 800 MG TABLET PO SCH ×3 (08:42→17:31)
[2017-01-10] MEDS: ASPIRIN 81 MG TAB.CHEW PO SCH (08:42)
[2017-01-10] MEDS: FERROUS SULFATE 325 MG TABEC PO SCH ×3 (08:42→17:31)
[2017-01-10] MEDS: LACTOBACILLUS RHAMNOSUS GG 1 EACH CAPSULE PO SCH ×2 (08:42→20:48)
[2017-01-10] MEDS: DOCUSATE SODIUM 100 MG CAPSULE PO SCH ×2 (08:42→20:48)
[2017-01-10] MEDS: ALLOPURINOL 100 MG TABLET PO SCH (08:42)
[2017-01-10] MEDS: SIMETHICONE 80 MG TAB.CHEW PO PRN ×3 (08:48→20:50)
[2017-01-10] MEDS ORDERED: EPOETIN ALFA 10,000 UNITS/ML VIAL IVP ONE ×2 (10:00→15:45)
[2017-01-10 11:12] VITALS: BP 145/70
[2017-01-10] MEDS: HYDROCODONE/APAP 5-325MG TABLET PO PRN (14:02)
[2017-01-10 14:19] VITALS: BP 135/64
[2017-01-10] MEDS: ONDANSETRON 4 MG/2 ML VIAL IV PRN (15:30)
[2017-01-10] MEDS: ALPRAZOLAM 0.5 MG TABLET PO PRN (15:50)
[2017-01-10] MEDS ORDERED: PIPERACILLIN/TAZO 0.75 G in IV DEXTROSE 5% 50 ML IV ONE (17:30)
[2017-01-10 20:00] VITALS: BP 123/58
[2017-01-10] MEDS: ATORVASTATIN 20 MG TABLET PO SCH (20:48)
[2017-01-10] MEDS: LEVOFLOXACIN 250MG /D5W 250 MG in PREMIXED 1 EACH IV SCH (20:48)
[2017-01-10] MEDS: CALCITRIOL 0.25 MCG CAPSULE PO SCH (20:49)
[2017-01-10] MEDS: SENNOSIDES 1 TABLET PO SCH (20:49)
[2017-01-10] MEDS: METOPROLOL SUCCINATE XL 50 MG TAB.SR.24H PO SCH (20:50)
[2017-01-11] MEDS: MORPHINE SULFATE 2 MG/1 ML DISP.SYRIN IV PRN (00:30)
[2017-01-11] MEDS: PIPERACILLIN/TAZOBACTAM/D5W 2.25 G in PREMIXED 1 EACH IV SCH ×2 (06:02→13:47)
[2017-01-11] MEDS: PANTOPRAZOLE SODIUM 40 MG TABLET.DR PO SCH (06:02)
[2017-01-11] MEDS: hydrALAZINE HCL 50 MG TABLET PO SCH ×2 (06:02→13:47)
[2017-01-11 06:49] LABS: ALBUMIN 2.4 g/dL (3.4-5.0); BILIRUBIN,TOTAL 0.3 mg/dL (0.2-1.0); CALCIUM 8.1 mg/dL (8.5-10.1); MAGNESIUM 2.2 mg/dL (1.8-2.4); POTASSIUM 5.5 mmol/L (3.5-5.1); TOTAL PROTEIN, SERUM 6.2 g/dL (6.4-8.2)
[2017-01-11 06:50] LABS: BASOPHILS % (AUTO) 0.3 % (0.0-2.0); EOSINOPHILS # (AUTO) 0.5 K/uL (0.0-0.7); HEMOGLOBIN 8.8 g/dL (12.0-16.0); LYMPHOCYTES # (AUTO) 1.7 K/uL (0.8-4.8); LYMPHOCYTES % (AUTO) 17.7 % (20.5-51.5); MEAN CORPUSCULAR HEMOGLOBIN 29.6 uug (27.0-31.0); MEAN CORPUSCULAR HGB CONC 32 g/dL (32.0-37.0); MEAN CORPUSCULAR VOLUME 91.5 fL (81.0-99.0); MONOCYTES % (AUTO) 10.5 % (0.0-11.0); NEUTROPHILS # (AUTO) 6.2 K/uL (1.8-8.9); NEUTROPHILS % (AUTO) 66.5 % (38.5-71.5); PLATELET COUNT (AUTO) 213 K/uL (150-450); RED BLOOD CELL COUNT(AUTO) 2.95 MIL/uL (4.20-5.40); RED CELL DISTRIBUTION WIDTH 16.2 % (11.5-14.5); WHITE BLOOD COUNT (AUTO) 9.4 K/uL (4.0-11.2)
[2017-01-11 07:03] LABS: CREATININE 5.1 mg/dL (0.6-1.3)
[2017-01-11] MEDS: BLOOD SUGAR DIAGNOSTIC 1 EACH STRIP VI SCH ×2 (07:19→12:19)
[2017-01-11] MEDS: DOCUSATE SODIUM 100 MG CAPSULE PO SCH (08:38)
[2017-01-11] MEDS: SEVELAMER CARBONATE 800 MG TABLET PO SCH ×2 (08:38→12:19)
[2017-01-11] MEDS: FERROUS SULFATE 325 MG TABEC PO SCH ×2 (08:39→12:19)
[2017-01-11] MEDS: LACTOBACILLUS RHAMNOSUS GG 1 EACH CAPSULE PO SCH (08:39)
[2017-01-11] MEDS: SIMETHICONE 80 MG TAB.CHEW PO PRN (08:39)
[2017-01-11] MEDS: ASPIRIN 81 MG TAB.CHEW PO SCH (08:39)
[2017-01-11] MEDS: ALLOPURINOL 100 MG TABLET PO SCH (08:39)
[2017-01-11] MEDS: MAG HYDROX/AL HYDROX/SIMETH 30 ML LIQUID UDC PO PRN (09:28)
[2017-01-11 11:49] VITALS: BP 127/66
[2017-01-11] MEDS ORDERED: HYDR-3326 PO (11:58)
[2017-01-11] MEDS ORDERED: Docusate Sodium PO (11:58)
[2017-01-11] MEDS ORDERED: SEVE800T PO (11:58)
[2017-01-11] MEDS ORDERED: HYDR50TA68 PO (11:58)
[2017-01-11] MEDS ORDERED: Sennosides PO (11:58)
[2017-01-11] MEDS ORDERED: PANT40TA2 PO (11:58)
[2017-01-11] MEDS ORDERED: Acetaminophen PO (11:58)
[2017-01-11 13:47] VITALS: BP 160/78
== END 2017-01-11 15:10 | disposition home or self-care (01) | DRG 871 ==
LOC: ER 19:51 → TELE 21:34 → MED 01-05 12:20
PROVIDERS: ADMIT Internal Medicine Nephrology; ATTEND Internal Medicine Nephrology
PROC: 30233N1 Transfusion of Nonautologous Red Blood Cells into Peripheral Vein, Percutaneous Approach (ICD-10-PCS; 2017-01-02)
PROC: 5A09357 Assistance with Respiratory Ventilation, Less than 24 Consecutive Hours, Continuous Positive Airway Pressure (ICD-10-PCS; 2017-01-02)
PROC: 05HM33Z Insertion of Infusion Device into Right Internal Jugular Vein, Percutaneous Approach (ICD-10-PCS; principal; 2017-01-03)
PROC: 5A1D60Z (ICD-10-PCS; 2017-01-03)
PROC: 02HV33Z Insertion of Infusion Device into Superior Vena Cava, Percutaneous Approach (ICD-10-PCS; 2017-01-09)
DX: A41.9 Sepsis, unspecified organism (principal); J15.9 Unspecified bacterial pneumonia; J96.01 Acute respiratory failure with hypoxia; J96.02 Acute respiratory failure with hypercapnia; E87.2 Acidosis; N17.9 Acute kidney failure, unspecified; N18.5 Chronic kidney disease, stage 5; J90 Pleural effusion, not elsewhere classified; J98.11 Atelectasis; I12.0 Hypertensive chronic kidney disease with stage 5 chronic kidney disease or end stage renal disease; G47.30 Sleep apnea, unspecified; E11.22 Type 2 diabetes mellitus with diabetic chronic kidney disease; E66.9 Obesity, unspecified; Z87.891 Personal history of nicotine dependence; E87.70 Fluid overload, unspecified; E88.09 Other disorders of plasma-protein metabolism, not elsewhere classified; F41.9 Anxiety disorder, unspecified; G47.33 Obstructive sleep apnea (adult) (pediatric); D63.8 Anemia in other chronic diseases classified elsewhere; J44.9 Chronic obstructive pulmonary disease, unspecified; Z68.32 Body mass index [BMI] 32.0-32.9, adult; R65.20 Severe sepsis without septic shock
CPT/HCPCS: 36415; 36600; 70030-TC; 71010; 71275; 76604; 82785; 83550; 83605; 83735; 84100; 85025; 86704; 86705; 86706; 86708; 86709; 86803; 86850; 86900; 86901; 86920; 87040; 87070; 87340; 87350; 90937; 93005; 94660; 94762; A4649; A4663; A9150; C1751; J0690; J0885; J1644; J1815; J1956; J2270; J2405; J2543; J3370; J3475; J3490; J7030; J7040; J7050; J7060; P9016-BL; P9021; Q9967